=== PATIENT | female | born 1995 | race Two or more races ===

== ENCOUNTER 2017-08-13 17:16 | Emergency (ER) | payer OTHER ==
[~2017-08-13] VITALS: Ht 149.9 cm; Wt 81.6 kg
[~2017-08-13 17:16] MED LIST: ADDERALL XR 3030 MG PO; ADVAIR 250/501 DISK IH; AMOXICILLIN500 M1 PO; FIORICET WI1 CAPSULE PO; FOCALIN XR15 MG PO; FOCALIN XR40 MG PO; KEFLEX500 MG PO; LAMICTAL25 MG PO; LEXAPRO10 MG PO; LORAZEPAM0.5 MG PO; MEDROL DOSEPAK4 MG PO; PAROXETINE HCL20 MG PO; PEPCID20 MG PO; QVAR 80 MCG IN7.3 GM IH; SPRINTEC1 EACH PO; TRAZODONE HCL50 MG PO; TYLENOL WITH C1 EACH PO; VYVANSE30 MG PO; XANAX0.25 MG PO
[2017-08-13] MEDS ORDERED: SINGULAIR10 MG PO (19:38)
[2017-08-13] MEDS ORDERED: MEDROL DOSEPAK4 MG PO (19:38)
[2017-08-13 20:05] VITALS: BP 130/89
== END 2017-08-13 20:21 | disposition home or self-care (01) ==
LOC: EME 17:16 → EXP 17:16
DX: J45.901 Unspecified asthma with (acute) exacerbation (principal); K21.9 Gastro-esophageal reflux disease without esophagitis; F90.9 Attention-deficit hyperactivity disorder, unspecified type; Z79.51 Long term (current) use of inhaled steroids; Z86.79 Personal history of other diseases of the circulatory system; Z86.69 Personal history of other diseases of the nervous system and sense organs
CPT/HCPCS: 94640; 99281; 99284; J7512

== ENCOUNTER 2017-09-09 20:41 | Emergency (ER) | payer OTHER ==
[~2017-09-09] VITALS: Ht 149.9 cm; Wt 81.3 kg
[~2017-09-09 20:41] MED LIST changes: +SINGULAIR10 MG PO
[2017-09-10 00:25] VITALS: BP 108/60
== END 2017-09-10 00:35 | disposition home or self-care (01) ==
LOC: EME 20:41
DX: G43.909 Migraine, unspecified, not intractable, without status migrainosus (principal); J45.909 Unspecified asthma, uncomplicated; K21.9 Gastro-esophageal reflux disease without esophagitis; F90.9 Attention-deficit hyperactivity disorder, unspecified type
CPT/HCPCS: 99281; 99285; J1200; J1885; J2765; J7030